=== PATIENT | male | born 1985 | race Caucasian/White ===

== ENCOUNTER 2020-11-15 01:30 | Emergency (ER) | payer SELFPAY ==
[2020-11-15] MEDS ORDERED: MEDROL 4MG DOSEP4 MG PO (03:53)
[2020-11-15] MEDS ORDERED: NORCO 5-325 TA1 EACH PO (03:53)
[2020-11-15] MEDS ORDERED: IBUPROFEN800 MG PO (03:53)
== END 2020-11-15 04:31 | disposition home or self-care (01) ==
LOC: FER 01:30
DX: S63.521A Sprain of radiocarpal joint of right wrist, initial encounter (principal); F17.200 Nicotine dependence, unspecified, uncomplicated; W20.8XXA Other cause of strike by thrown, projected or falling object, initial encounter
CPT/HCPCS: 73110; 96372; J1885